=== PATIENT | male | born 2000 | race Caucasian/White ===

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

== ENCOUNTER 2020-08-14 14:23 | Inpatient (IN) | payer MEDICAID ==
[2020-08-14] VITALS (13 sets, daily range): BP systolic 127–172; BP diastolic 52–90
[~2020-08-14] VITALS: Ht 182.9 cm; Wt 113.6 kg
[2020-08-14 15:31] LABS: BASOPHILS % (AUTO) 0.1 % (0-1); EOSINOPHILS # (AUTO) 0.1 X10'3 (0-0.9); EOSINOPHILS % (AUTO) 0.8 % (0-6); HEMOGLOBIN 15.2 g/dl (14.0-17.9); LYMPHOCYTES # (AUTO) 1.3 X10'3 (1.1-4.8); LYMPHOCYTES % (AUTO) 6.9 % (21-51); MEAN CORPUSCULAR HEMOGLOBIN 29.8 PG (27.0-31.0); MEAN CORPUSCULAR HGB CONC 34.5 g/dL (33.0-36.5); MEAN CORPUSCULAR VOLUME 86.3 FL (78-98); MEAN PLATELET VOLUME 7.1 FL (7.4-10.4); MONOCYTES # (AUTO) 1.1 X10'3 (0-0.9); MONOCYTES % (AUTO) 5.8 % (2-12); NEUTROPHILS # (AUTO) 15.6 X10'3 (1.8-7.7); NEUTROPHILS % (AUTO) 86.4 % (42-75); PLATELET COUNT 374 X10'3 (140-440); RED CELL DISTRIBUTION WIDTH 12.9 % (11.5-14.5); WHITE BLOOD COUNT 18.1 X10'3 (4.5-11.0)
[2020-08-14 15:47] LABS: ALANINE AMINOTRANSFERASE 44 U/L (12-78); ALBUMIN 4.1 G/DL (3.4-5.0); ALBUMIN/GLOBULIN RATIO 1.1 (1.1-1.5); ALKALINE PHOSPHATASE 92 IU/L (20-180); AMYLASE 29 U/L (25-115); ANION GAP 8 (8-16); ASPARTATE AMINO TRANSFERASE 17 U/L (10-37); BILIRUBIN,TOTAL 0.4 MG/DL (0.1-1.0); BLOOD UREA NITROGEN 16 MG/DL (7-18); CHLORIDE 105 MMOL/L (99-107); CREATININE 0.94 MG/DL (0.60-1.10); GLUCOSE 110 MG/DL (70-104); LIPASE < 50 U/L (73-393); SODIUM 138 MMOL/L (135-145); TOTAL CARBON DIOXIDE 24.9 MMOL/L (24-32); TOTAL PROTEIN 7.8 G/DL (6.4-8.2); eGFR > 90 ML/MIN
[2020-08-14 15:56] LABS: CALCIUM 9.2 MG/DL (8.5-10.1)
[2020-08-14] MEDS ORDERED: morphine 4 MG/ML inj SYRINge IV ONE (16:10)
[2020-08-14] MEDS ORDERED: ondansetron/PF 4mg/2ml inj IV ONE (16:10)
[2020-08-14] MEDS ORDERED: iohexol 300mg/ml 100ml inj. ONE (16:38)
[2020-08-14 17:02] LABS: CLARITY,URINE CLEAR (Clear); COLOR,URINE YELLOW (Yellow); GLUCOSE, URINE NEGATIVE (Neg); KETONES,URINE NEGATIVE (Neg); LEUKOCYTE ESTERASE ,URINE NEGATIVE (Neg); NITRITES, URINE NEGATIVE (Neg); OCCULT BLOOD,URINE NEGATIVE (Neg); PROTEIN,URINE NEGATIVE (Neg)
[2020-08-14 17:05] LABS: UA COLLECTION TYPE URINAL
[2020-08-14] MEDS ORDERED: ceFOXitin 1 GM/D5W 50mL IVPB 50 ML IV STA (17:19)
[2020-08-14] MEDS ORDERED: ceFOXitin inj 1,000 MG in normal saline 100ml IV soln 100 ML IV STA (17:23)
--- NOTE | 2020-08-14 17:41 | NUR ---
SURGICAL CALLED AND WILL BE PICKING UP PT IN 30 MIN.
[2020-08-14] MEDS ORDERED: BUPIVAcaine/PF 2.5 mg/ml (0.25%) 30ml vial ONE (17:46)
[2020-08-14] MEDS ORDERED: magnesium 4gm in 100ml NS 100 ML IV PRN (17:50)
[2020-08-14] MEDS ORDERED: potassium Cl 20 mEq SR tablet PO PRN ×2 (17:50)
[2020-08-14] MEDS ORDERED: magnesium 2GM in 50ml NS 50 ML IV PRN (17:50)
[2020-08-14] MEDS ORDERED: potassium Cl 40MEQ/1/2NS 520ml 520 ML IV PRN ×2 (17:50)
[2020-08-14] MEDS ORDERED: acetaminophen 325mg tablet PO PRN (17:50)
[2020-08-14] MEDS ORDERED: HYDROcodone/acetaminophen 5mg/325mg tablet PO PRN (17:50)
[2020-08-14] MEDS ORDERED: ondansetron/PF 4mg/2ml inj IV PRN ×2 (17:50→18:40)
[2020-08-14] MEDS ORDERED: magnesium Cl slow-release 64mg tablet PO PRN (17:50)
[2020-08-14] MEDS ORDERED: NO HOME MEDS (17:54)
--- NOTE | 2020-08-14 18:12 | NUR ---
PT TO [facility] WITH EDEL LOVE FROM OR.
[2020-08-14] MEDS ORDERED: fentaNYL/PF 50MCG/1 ML 2ML syringe ONE (18:37)
[2020-08-14] MEDS ORDERED: midazolam 2 mg/2 ml injection ONE (18:37)
[2020-08-14] MEDS ORDERED: propofol inj 20 ML IV ONE (18:37)
[2020-08-14] MEDS ORDERED: sevoflurane 250ml liquid IH ONE (18:38)
[2020-08-14] MEDS ORDERED: proCHLORperazine 10 MG/2 ml inj IV PRN (18:40)
[2020-08-14] MEDS ORDERED: ringers solution, lacted 1,000 ML IV SCH (18:40)
[2020-08-14] MEDS ORDERED: morphine 4 MG/ML inj SYRINge IV PRN (18:40)
[2020-08-14] MEDS ORDERED: meperidine/PF 25mg/ml syringe IV PRN ×2 (18:40)
[2020-08-14] MEDS ORDERED: morphine 2 MG/ML inj. syringe IV PRN (18:40)
[2020-08-14] MEDS ORDERED: glycopyrrolate 0.2mg/ml inj ONE (19:35)
[2020-08-14] MEDS ORDERED: rocuronium 10mg/ml inj IV ONE (19:35)
[2020-08-14] MEDS ORDERED: neostigmine methylsulfate 1 MG/ML 10ml vial ONE (19:35)
--- NOTE | 2020-08-14 19:37 | NUR ---
Received from OR via , accompanied by Anesthesiologist DR HOWARD and report given by Anesthesiolgist. AWAKENS TO VOICE. VITALS STABLE. DRESSINGS DI. STATES MODERATE ABD PAIN. ABD SOFT.
[2020-08-14] MEDS: K and/or MAG REPLACEMENT MC SCH (20:00)
[2020-08-14] MEDS: meperidine/PF 25mg/ml syringe IV PRN ×2 (20:04→20:29)
--- NOTE | 2020-08-14 20:30 | NUR ---
Pt. arrived to floor via bed. A&Ox4, fatigues, denies having any pain at this time.
--- NOTE | 2020-08-14 20:37 | NUR ---
Report called to receiving nurse. Transferred via BED Belongings . Special Issues communicated to receiving nurse. AWAKE AND ORIENTED. VITALS STABLE. DRESSIONGS DI. STATES PAIN IMPROVING. TO SURGICAL RM 356B AT THIS TIME.
[2020-08-14] MEDS: normal saline 1000ml 1,000 ML IV SCH (22:53)
[2020-08-15] VITALS: BP 127/73
[2020-08-15 00:30] VITALS: BP 128/64
[2020-08-15] MEDS: normal saline 1000ml 1,000 ML IV SCH ×2 (03:50→08:02)
--- NOTE | 2020-08-15 06:30 | NUR ---
Problems reprioritized. Patient report given, questions answered & plan of care reviewed with Fatmata LOVE.
[2020-08-15 07:00] VITALS: BP 128/71
[2020-08-15 07:40] LABS: BASOPHILS % (AUTO) 0.1 % (0-1); EOSINOPHILS % (AUTO) 0 % (0-6); HEMATOCRIT 43.2 % (42.0-52.0); HEMOGLOBIN 14.9 g/dl (14.0-17.9); LYMPHOCYTES # (AUTO) 0.8 X10'3 (1.1-4.8); LYMPHOCYTES % (AUTO) 6.2 % (21-51); MEAN CORPUSCULAR HEMOGLOBIN 30.1 PG (27.0-31.0); MEAN CORPUSCULAR HGB CONC 34.5 g/dL (33.0-36.5); MEAN CORPUSCULAR VOLUME 87.4 FL (78-98); MEAN PLATELET VOLUME 7.1 FL (7.4-10.4); MONOCYTES # (AUTO) 0.4 X10'3 (0-0.9); MONOCYTES % (AUTO) 3.1 % (2-12); NEUTROPHILS # (AUTO) 11.5 X10'3 (1.8-7.7); NEUTROPHILS % (AUTO) 90.6 % (42-75); PLATELET COUNT 387 X10'3 (140-440); RED BLOOD COUNT 4.94 X10'6 (4.70-6.10); WHITE BLOOD COUNT 12.6 X10'3 (4.5-11.0)
[2020-08-15 07:52] LABS: ALBUMIN 3.7 G/DL (3.4-5.0); ANION GAP 9 (8-16); BLOOD UREA NITROGEN 14 MG/DL (7-18); BUN/CREATININE RATIO 14.6 (5.4-32.0); CALCIUM 8.8 MG/DL (8.5-10.1); CHLORIDE 104 MMOL/L (99-107); CREATININE 0.96 MG/DL (0.60-1.10); GLUCOSE 138 MG/DL (70-104); MAGNESIUM 2.5 MG/DL (1.5-2.4); POTASSIUM 3.8 MMOL/L (3.5-5.1); SODIUM 137 MMOL/L (135-145); TOTAL CARBON DIOXIDE 24.3 MMOL/L (24-32); eGFR > 90 ML/MIN
[2020-08-15] MEDS: K and/or MAG REPLACEMENT MC SCH (08:00)
[2020-08-15 12:00] VITALS: BP 119/52
--- NOTE | 2020-08-15 12:29 | NUR ---
Pt ok to DC home per Dr. De La Rosa. MD office to fax note for work "Off of work and no heavy lifting x2 weeks".
--- NOTE | 2020-08-15 13:05 | NUR ---
PAGER ID: [phone] MESSAGE: Mariajose MALDONADOB: PATIENT IS CLEARED BY SURGERY TO DISCHARGE. THANKS! [phone]
--- NOTE | 2020-08-15 14:18 | NUR ---
PATIENT STABLE AND APPROPRIATE FOR DISCHARGE HOME. IV REMOVED, ALL BELONGINGS TAKEN FROM ROOM. PAIN MEDICATIONS ARE BEING PROCESSED THROUGH DR LONGO'S OFFICE. DISCHARGE INSTRUCTIONS AND EDUCATION GIVEN AND REVIEWED WITH PATIENT, ALL QUESTIONS ANSWERED. WORK EXCUSE NOTE ALSO GIVEN TO PATIENT.
--- NOTE | 2020-08-16 13:34 | NUR ---
CASE MANAGEMENT DISCHARGE FOLLOW UP: Spoke with pt via telephone. Pt reports that he is doing "alright." Denies fever, drainage, redness at surgical site. States some minor discomfort at claudia. Verbalizes understanding of s/sx requiring further evaluation/emergent assistance. Pt verbalizes compliance with MD discharge instructions. Pt verbalizes understanding of the importance in making follow-up appointments, has appointment on 08/17/[address] De La Rosa. Reinforced education that pt is to not do any heavy lifting for 2 weeks, pt verbalizes understanding. Pt states no further questions/concerns at this time.
== END 2020-08-15 14:19 | disposition home or self-care (01) | DRG 234 ==
LOC: ER 14:24 → ED HOLD 17:49 → SUR 3N 20:30
PROVIDERS: ADMIT Internal Medicine; ATTEND Internal Medicine
PROC: BW211ZZ Computerized Tomography (CT Scan) of Abdomen and Pelvis using Low Osmolar Contrast (ICD-10-PCS; 2020-08-14)
PROC: 0DTJ4ZZ Resection of Appendix, Percutaneous Endoscopic Approach (ICD-10-PCS; principal; 2020-08-14 18:38)
DX: K35.80 Unspecified acute appendicitis (principal); Z20.822 Contact with and (suspected) exposure to COVID-19; F17.200 Nicotine dependence, unspecified, uncomplicated; E66.9 Obesity, unspecified; Z68.34 Body mass index [BMI] 34.0-34.9, adult
CPT/HCPCS: 36415; 74177; 80048; 80053; 81003; 82150; 83690; 83735; 85025; 87081; 87635; 96374; 96375; 99285; A4215; A4618; A7000; G0378; J0694; J2175; J2250; J2270; J2405; J2704; J2710; J3010; J3490; J7030; J7120; Q9967

== ENCOUNTER 2021-01-15 23:17 | Emergency (ER) | payer MEDICAID ==
[~2021-01-15] VITALS: Ht 180.3 cm; Wt 115.2 kg
[~2021-01-15 23:17] MED LIST: NO HOME MEDS
[2021-01-15 23:51] VITALS: BP 134/81
[2021-01-16] MEDS ORDERED: mupirocin 2% ointment 22GM TP STA (00:30)
[2021-01-16] MEDS ORDERED: MUPI22OI30 TOP (01:07)
== END 2021-01-16 01:29 | disposition home or self-care (01) ==
LOC: ER 23:17
DX: S09.90XA Unspecified injury of head, initial encounter (principal); M54.89 Other dorsalgia; Z79.2 Long term (current) use of antibiotics; W19.XXXA Unspecified fall, initial encounter; Y93.89 Activity, other specified; Y92.89 Other specified places as the place of occurrence of the external cause; Y99.8 Other external cause status
CPT/HCPCS: 70450; 72125; 99285